=== PATIENT | male | born 1970 | race African-American/Black ===

== ENCOUNTER → 2018-07-26 13:41 | Outpatient (CLI) | payer MEDICAID | END | disposition home or self-care (01) | LOC: D.RAD 13:41 | PROVIDERS: ATTEND Emergency Medicine | DX: R05 Cough (principal) ==

== ENCOUNTER → 2018-12-31 08:39 | Outpatient (CLI) | payer MEDICAID | END | disposition home or self-care (01) | LOC: D.RAD 08:39 | PROVIDERS: ATTEND Emergency Medicine | DX: R05 Cough (principal); R07.89 Other chest pain ==

== ENCOUNTER → 2020-08-17 09:39 | Outpatient (CLI) | payer MEDICAID | END | disposition home or self-care (01) | LOC: D.RAD 09:39 | PROVIDERS: ATTEND Emergency Medicine | DX: M84.341A Stress fracture, right hand, initial encounter for fracture (principal) ==